=== PATIENT | male | born 1965 | race Two or more races ===

== ENCOUNTER 2017-10-07 15:01 | Inpatient (IN) | payer OTHER ==
[2017-10-07] MEDS ORDERED: NS 1,000 ML IV ONE ×2 (16:35)
[2017-10-07] MEDS ORDERED: FAMOTIDINE 20 MG/NACL 50 ML IV ONE (16:35)
[2017-10-07] MEDS ORDERED: ONDANSETRON 4 MG/2 ML VIAL IVP ONE (16:35)
[2017-10-07] MEDS ORDERED: HYDROmorphONE/DILAUDID 1 MG/ML INJ IVP ONE (16:35)
--- NOTE | 2017-10-07 16:39 | EDPHY ---
H & P Time Seen by Provider: 10/07/17 16:06 HPI/ROS: HPI Abdominal pain, vomiting and diarrhea. 52-year-old male by private vehicle with family. This patient reports that on Thursday he developed fever with abdominal pain. He describes this pain is mostly right lower and right mid abdominal pain. Described as achy and crampy. He had associated nausea and vomiting. He reports several episodes of nonbilious, nonbloody vomiting on Thursday. He has not vomited since Thursday. He reports fever which has been on off since Thursday. He reports the diarrhea started today. No bloody or melenic stool. He was seen at an urgent care yesterday for this complaint. He was discharged to the medication for nausea. Last solid food intake was yesterday. No prior abdominal surgical history. Denies ill contacts. No foreign travel. No camping. ROS: Constitutional: As above, no chills. No weakness. Eyes: No discharge. No changes in vision. ENT: No sore throat. No nasal congestion or rhinorrhea. Respiratory: No cough. No shortness of breath. Cardiac: No chest pain, no palpitations. Gastrointestinal: As above. Genitourinary: No hematuria. No dysuria or increased frequency with urination. Musculoskeletal: No back pain. No neck pain. No myalgias or arthralgias. Skin: No rashes. Neurological: No headache. No focal weakness or altered sensation. Past medical history: No significant past medical history. No prescription medications. Social history: Nonsmoker. No alcohol. Here with family. Physical Exam: General Appearance: Alert, he appears uncomfortable. This patient is responding to questions appropriately and in full sentences. This patient appears generally well-hydrated and well-nourished. Eyes: Pupils equal and round no pallor or injection. No lid edema, erythema or injection. Respiratory: There are no retractions, lungs are clear to auscultation with good air movement bilaterally. Cardiovascular: Regular rate and rhythm. No murmur. Gastrointestinal: Abdomen is mildly distended. He has tenderness on palpation vaguely in the right lower quadrant and right mid and upper abdomen. He has associated voluntary guarding on palpation, no masses, bowel sounds present. Focal tenderness at McBurney's point present. No Mireles sign. Neurological: Motor sensory function is grossly intact. Cranial nerves are normal. Gait is normal. Skin: Warm and dry, no rashes. Musculoskeletal: Neck is supple and nontender. Extremities are symmetrical. All joints range without pain or impingement. Psychiatric: No agitation. No depression. Database: EKG: Imaging: CT abdomen and pelvis with IV contrast: Significant for a dilated likely perforated 16 mm appendix with appendicolith. Lots of periappendiceal inflammatory changes with inflammation circumferentially involving the cecum and then spreading up the ascending colon. There is free air noted along the ascending colon and abscess. Results were discussed with staff radiologist Dr. Terry Mcdaniel. Procedures: Emergency department course: IV placed. He was placed on a monitor. He was started on IV normal saline with 2 L to be given over the next 1-2 hours. He was initially given 0.5 mg of IV hydromorphone, 4 mg of IV Zofran and 20 mg of IV Pepcid. He consents to CT imaging to evaluate for appendicitis versus other surgical etiology. 5:50 p.m., discussed case with on-call general surgeon Dr. Kory Dunne. We evaluated the patient's CT scans together. He accepts the patient for admission and operative management. 6:05 p.m., patient re-evaluated. Pain currently controlled. 1 g of IV Invanz ordered. Results of CT scan and diagnosis discussed with him and family. Need for operative management discussed with him and family. I explained that Dr. Kory Dunne would be admitting him in taking care of him. Their questions were answered. The patient's remaining emergency department course under my care has been uneventful. 6:30 p.m., Dr. Phu Dunne at the patient's bedside. The patient has had 1 g of IV invents. He will take this patient to the operating room now. Differential Diagnosis: The differential diagnosis on this patient includes but is not limited to appendicitis, colitis, food borne illness, gastroenteritis, cholecystitis. This represents a partial list of diagnoses considered. These considerations are based on history, physical exam, past history, reassessment and diagnostic testing. Smoking Status: Never smoked Constitutional: Initial Vital Signs Temperature (C) 39.2 C H 10/07/17 15:03 Heart Rate 107 H 10/07/17 15:03 Respiratory Rate 18 10/07/17 15:03 Blood Pressure 121/66 H 10/07/17 15:03 O2 Sat (%) 97 10/07/17 15:03 O2 Delivery Mode Room Air Allergies/Adverse Reactions: No Known Allergies Allergy (Unverified 10/07/17 15:06) Home Medications: Medication Instructions Recorded Ondansetron Odt [Zofran Odt 4 mg 4 mg PO Q8 PRN 10/07/17 (*)] Ranitidine HCl [Zantac] 150 mg PO BID 10/07/17 Medical Decision Making - Data Points Laboratory Results: Laboratory Results 10/07/17 15:52 10/07/17 15:52 Medications Given: Calcium Carbonate (Tums) 500 - 1,000 mg PO Q4 PRN PRN Reason: ACID REFLUX Stop: 04/07/18 00:01 Last Admin: 10/09/17 13:23 Dose: 1,000 mg Enoxaparin Sodium (Lovenox) 40 mg SC DAILY [facility] Stop: 04/06/18 08:59 Last Admin: 10/10/17 08:20 Dose: 40 mg Ertapenem (Invanz) 1 gm IVP DAILY [facility] PRN Reason: Protocol Stop: 11/07/17 08:59 Last Admin: 10/10/17 08:16 Dose: 1 gm Ibuprofen (Motrin) 600 mg PO Q8HRS [facility] Stop: 04/05/18 21:59 Last Admin: 10/10/17 05:27 Dose: 600 mg Metoclopramide HCl (Reglan Injection) 10 mg IVP Q4HRS PRN PRN Reason: Nausea/Vomiting, Can't Take PO Stop: 04/05/18 20:53 Last Admin: 10/09/17 04:18 Dose: 10 mg Pantoprazole Sodium (Protonix) 40 mg IVP BID [facility] Stop: 04/07/18 08:59 Last Admin: 10/10/17 08:15 Dose: 40 mg Discontinued Medications Bupivacaine HCl (Sensorcaine 0.25% Sdv) Confirm Administered Dose 30 ml .ROUTE .STK-MED ONE Stop: 10/07/17 19:03 Last Admin: 10/07/17 20:00 Dose: 30 ml Ertapenem (Invanz) 1 gm IVP EDNOW ONE PRN Reason: Protocol Stop: 10/07/17 17:59 Last Admin: 10/07/17 18:48 Dose: 1 gm Hydromorphone HCl (Dilaudid) 0.5 mg IVP EDNOW ONE Stop: 10/07/17 16:36 Last Admin: 10/07/17 16:56 Dose: 0.5 mg Sodium Chloride (Ns) 1,000 mls @ 0 mls/hr IV EDNOW ONE; Wide Open PRN Reason: Protocol Stop: 10/07/17 16:36 Last Admin: 10/07/17 16:56 Dose: 1,000 mls Sodium Chloride (Ns) 1,000 mls @ 0 mls/hr IV EDNOW ONE; Wide Open PRN Reason: Protocol Stop: 10/07/17 16:36 Last Admin: 10/07/17 17:13 Dose: 1,000 mls Famotidine/Sodium Chloride (Pepcid 20 Mg (Premix)) 50 mls @ 200 mls/hr IV EDNOW ONE Stop: 10/07/17 16:49 Last Admin: 10/07/17 16:57 Dose: 50 mls Lactated Ringer's (Lr) 1,000 mls @ 0 mls/hr IV ONCE ONE PRN Reason: KVO Stop: 10/07/17 19:09 Last Admin: 10/07/17 19:29 Dose: 1,000 mls Potassium Chloride/Dextrose/Sod Cl (D5w 1/2 Ns W/ 20 Kcl/L) 1,000 mls @ 100 mls /hr IV CONT [facility] Stop: 04/05/18 20:59 Last Admin: 10/10/17 07:51 Dose: 1,000 mls Ondansetron HCl (Zofran) 4 mg IVP EDNOW ONE Stop: 10/07/17 16:36 Last Admin: 10/07/17 16:56 Dose: 4 mg Departure - Departure Disposition: [facility] Inpatient Acute Clinical Impression: Abdominal pain, Vomiting, Diarrhea, Acute appendicitis with rupture
[2017-10-07 16:48] LABS: ALANINE AMINOTRANSFERASE 41 IU/L (21-72); ALBUMIN 3.7 g/dL (3.5-5.0); ALKALINE PHOSPHATASE 79 IU/L (38-126); ANION GAP 15 mEq/L (8-16); ASPARTATE AMINOTRANSFERASE 28 IU/L (17-59); BILIRUBIN,TOTAL 2.4 mg/dL (0.1-1.4); BILIRUBIN-CONJUGATED 0.7 mg/dL (0.0-0.5); BILIRUBIN-UNCONJUGATED 1.7 mg/dL (0.0-1.1); CALCIUM 8.5 mg/dL (8.5-10.4); CARBON DIOXIDE 26 mEq/l (22-31); CHLORIDE 91 mEq/L (97-110); GLOMERULAR FILTRATION RATE > 60; GLUCOSE 158 mg/dL (70-100); POTASSIUM 3.4 mEq/L (3.5-5.2); SODIUM 132 mEq/L (134-144); TOTAL PROTEIN 6.7 g/dL (6.3-8.2)
[2017-10-07 16:51] LABS: ADD MORPH? NO; ATYPICAL LYMPHOCYTE FLAG 0 (0-99); FRAGMENT RBC FLAG 0 (0-99); HEMATOCRIT 41.7 % (40.0-51.0); HEMOGLOBIN 14.3 g/dL (13.7-17.5); LIPEMIA HEMOLYSIS FLAG 90 (0-99); MEAN CELL HEMOGLOBIN CONCENTR. 34.3 g/dL (32.4-36.7); MEAN CELL VOLUME 90.5 fL (81.5-99.8); MEAN PLATELET VOLUME 9.8 fL (8.7-11.7); PLATELET CLUMPS FLAG 10 (0-99); PLATELET COUNT 259 10^3/uL (150-400); RED BLOOD CELL COUNT 4.61 10^6/uL (4.40-6.38); RED CELL DISTRIBUTION WIDTH 12.4 % (11.5-15.2)
[2017-10-07 16:52] LABS: LEFT SHIFT FLG 300 (0-99)
[2017-10-07 16:53] LABS: ADD DIFF? YES; ADD SCAN? NO
[2017-10-07] MEDS ORDERED: IOPAMIDOL (ISOVUE-300) 100 ML BTL ONE (17:07)
[2017-10-07 17:21] LABS: PLATELET ESTIMATE ADEQUATE (ADEQ)
[2017-10-07] MEDS ORDERED: ERTAPENEM 1 GM VIAL IVP ONE (17:58)
[2017-10-07] MEDS ORDERED: BUPIVACAINE 0.25% 30 ML SDV ONE (19:02)
[2017-10-07] MEDS ORDERED: LR 1,000 ML IV ONE (19:08)
--- NOTE | 2017-10-07 19:13 | PDCONSULT ---
Population Health Manager Note: 52 y/o male with 5 day history of fever, abd pain came to the ED this evening. Dr. Bonilla requested surgical consultation after a CT showed a ruptured appendix. PMH: no meds NKDA no prior surgery no chronic medical problems SH: from [facility], here with his son and a friend FH: [place] ROS: + fever/chills/abd pain no prior colonoscopy PE: T39.2 P 100 BP 128/78 thin male in NAD mild scleral icterus CVS: RRR w/ II/ KINA, tachy Abd: +BS, tender RLQ + RUQ with guarding/left side of abd soft, bowel sounds diminished CT: perforated appendicits with free air/cecal inflammation bili: 2.4 wbc 9.2 w/ left shift Imp: perforated appendicitis/jose r-cecal abscess mild Gilbert's Rec: to OR for appendectomy/drainage abscess Informed consent was obtained. Anh Dunne MD, FACS
[2017-10-07] MEDS ORDERED: PROPOFOL 200 MG/20 ML VIAL ONE (19:32)
[2017-10-07] MEDS ORDERED: ROCURONIUM 50 MG/5 ML VIAL ONE (19:34)
[2017-10-07] MEDS ORDERED: ONDANSETRON 4 MG/2 ML VIAL ONE (19:34)
[2017-10-07] MEDS ORDERED: fentaNYL 250 MCG/5 ML INJ ONE (19:34)
[2017-10-07] MEDS ORDERED: DEXAMETHASONE 4 MG/ML VIAL ONE (19:34)
[2017-10-07] MEDS ORDERED: VASOPRESSIN 20 UNIT/ML VIAL ONE (19:47)
[2017-10-07] MEDS ORDERED: ALBUTEROL 3 ML DEYVIAL IH PRN (20:02)
[2017-10-07] MEDS ORDERED: ONDANSETRON 4 MG/2 ML VIAL IVP PRN ×2 (20:02→20:54)
[2017-10-07] MEDS ORDERED: OXYCODONE/APAP 5/325 TAB PO PRN (20:02)
[2017-10-07] MEDS ORDERED: HYDROmorphONE/DILAUDID 1 MG/ML INJ IVP PRN (20:02)
[2017-10-07] MEDS ORDERED: fentaNYL 100 MCG/2 ML INJ IVP PRN (20:02)
[2017-10-07] MEDS ORDERED: NALOXONE HCL 0.4 MG/ML INJ IVP PRN ×2 (20:02)
--- NOTE | 2017-10-07 20:04 | PDANEPAE ---
ANE History of Present Illness Open Appy ANE Past Medical History - Cardiovascular History Hx Hypertension: No Hx Arrhythmias: No Hx Chest Pain: No - Pulmonary History Hx COPD: No Hx Asthma/Reactive Airway Disease: No Hx Oxygen in Use at Home: No Hx Sleep Apnea: No - Endocrine History Hx Diabetes: No ANE Review of Systems Review of Systems: - Exercise capacity METS (RN): 4 METS ANE Patient History - Allergies Allergies/Adverse Reactions: No Known Allergies Allergy (Unverified 10/07/17 15:06) - Home Medications Home Medications: Ondansetron Odt [Zofran Odt 4 mg (*)] 4 mg PO Q8 PRN 10/07/17 [Last Taken 2 Days Ago ~10/05/17] Ranitidine HCl [Zantac] 150 mg PO BID 10/07/17 [Last Taken 10/07/17 09:00] - NPO status NPO Since - Liquids (Date): 10/07/17 NPO Since - Liquids (Time): 11:00 NPO Since - Solids (Date): 10/07/17 NPO Since - Solids (Time): 11:00 - Smoking Hx Smoking Status: Never smoked ANE Labs/Vital Signs - Labs Result Diagrams: 10/07/17 15:52 10/07/17 15:52 - Vital Signs Blood Pressure: 117/74 Heart Rate: 101 Respiratory Rate: 24 O2 Sat (%): 91 Height: 165.1 cm Weight: 59.874 kg ANE Physical Exam - Airway Neck exam: FROM Mallampati Score: Class 2 Mouth exam: normal dental/mouth exam - Pulmonary Pulmonary: clear to auscultation - Cardiovascular Cardiovascular: regular rate and rhythym - ASA Status ASA Status: I, E ANE Anesthesia Plan Anesthesia Plan: general endotracheal anesthesia
[2017-10-07] MEDS ORDERED: SUGAMMADEX SODIUM 200 MG/2 ML VIAL IVP ONE (20:38)
[2017-10-07] MEDS ORDERED: HYDROmorphone HCL/NS/PF 0.4 MG/2 ML SYR IVP PRN (20:54)
[2017-10-07] MEDS ORDERED: METOCLOPRAMIDE 10 MG/2 ML VIAL IVP PRN (20:54)
--- NOTE | 2017-10-07 20:55 | POSTANESTH ---
Post Anesthetic Evaluation Cardiovascular Status: Normal, Stable Respiratory Status: Normal, Stable Level of Consciousness/Mental Status: Moderately Sleepy Pain Control: Adequate, Prn Tx Ordered Nausea/Vomiting Control: Adequate, Prn Tx Ordered Complications Possibly Related to Anesthesia: None Noted
--- NOTE | 2017-10-07 20:59 | POSTOPPROG ---
Post Op Note Date of Operation: 10/07/17 Surgeon: Kory Dunne (, FACS) Anesthesiologist: Jeffrey Ames DO Anesthesia: GET(General Endotracheal) Pre-op Diagnosis: appendicitis, perforated with abscess Post-op Diagnosis: same Procedure: appendectomy with drainage abscess Inf/Abcess present in the surg proc area at time of surgery?: Yes Depth: Organ Space Drains: Jw Smith
[2017-10-07] MEDS: IBUPROFEN 600 MG TAB PO SCH (21:49)
[2017-10-07] MEDS: D5W 1/2 NS W/ 20 KCl/L 1,000 ML IV SCH (21:49)
--- NOTE | 2017-10-08 04:29 | GOP ---
[f rep st] OPERATIVE REPORT DATE OF OPERATION: 10/07/2017 SURGEON: Kory Dunne MD, FACS ANESTHESIA: General endotracheal. ANESTHESIOLOGIST: Jeffrey Ames DO. PREOPERATIVE DIAGNOSIS: Perforated appendicitis with periappendiceal abscess. POSTOPERATIVE DIAGNOSIS: Perforated appendicitis with periappendiceal abscess. PROCEDURE PERFORMED: Appendectomy and drainage of periappendiceal abscess. FINDINGS: Gangrenous appendicitis with multiple sites of perforation, periappendiceal abscess. ESTIMATED BLOOD LOSS: 25 mL. DESCRIPTION OF PROCEDURE: After informed consent was obtained, the patient was brought to the operating room and placed under general anesthesia. The abdomen was prepped and draped in usual fashion. Before proceeding, a time-out and identification of the patient was performed. 0.25% Marcaine was used to establish a regional field block. A right lower quadrant incision was made somewhat higher than McBurney's point based on the location of the appendix and the abscess which was between the ascending colon and anterior abdominal wall. Incision was carried through into the abdominal cavity, immediately encountering foul-smelling pericecal fluid. As the cecum was mobilized with the terminal ilium, the appendix was identified and was noted to be gangrenous with multiple sites of perforation. There were no fecaliths within the operative field. The omentum was from the ascending colon, where the abscess had insinuated itself between these structures. There was no compromise of the bowel wall. Cultures were submitted for aerobes and anaerobes. The mesoappendix was clamped, divided, and ligated with 2-0 Vicryl ligatures. The appendix was near the cecum and the appendiceal orifice was oversewn in 2 layers of 3-0 Vicryl suture. The paracolic gutter, pericecal region, and pelvis were irrigated with normal saline until the effluent was clear. Two 10 mm Osman-Bell drains were brought through separate stab wounds below the incision. One was placed in the right paracolic gutter, the other in the dependent portion of the pelvis. The operative field appeared hemostatic. The peritoneum was closed with continuous running 2-0 Vicryl suture. The wound was again irrigated. The fascia was closed with 0 PDS suture, and a Jw drain brought out through the lateral aspect of the wound and secured to the skin with 2-0 nylon suture. Skin was closed loosely with jamee. Drains were secured with 2-0 nylon suture. Sterile dressings were placed. The patient was then returned extubated to the recovery room in satisfactory condition. Needle, sponge, and instrument count were correct. COMPLICATIONS: None. /[id number]/MODL MTDD
[2017-10-08 05:46] LABS: ADD MORPH? NO; ADD SCAN? YES; ATYPICAL LYMPHOCYTE FLAG 0 (0-99); FRAGMENT RBC FLAG 0 (0-99); HEMATOCRIT 35.6 % (40.0-51.0); HEMOGLOBIN 11.9 g/dL (13.7-17.5); LIPEMIA HEMOLYSIS FLAG 80 (0-99); MEAN CELL HEMOGLOBIN 30.6 pg (27.9-34.1); MEAN CELL HEMOGLOBIN CONCENTR. 33.4 g/dL (32.4-36.7); MEAN CELL VOLUME 91.5 fL (81.5-99.8); MEAN PLATELET VOLUME 9.6 fL (8.7-11.7); PLATELET CLUMPS FLAG 10 (0-99); PLATELET COUNT 211 10^3/uL (150-400); RED BLOOD CELL COUNT 3.89 10^6/uL (4.40-6.38); RED CELL DISTRIBUTION WIDTH 12.9 % (11.5-15.2)
[2017-10-08] MEDS: IBUPROFEN 600 MG TAB PO SCH ×3 (05:47→20:54)
[2017-10-08 05:51] LABS: LEFT SHIFT FLG 300 (0-99)
[2017-10-08 06:04] LABS: ALANINE AMINOTRANSFERASE 44 IU/L (21-72); ALBUMIN 2.6 g/dL (3.5-5.0); ALKALINE PHOSPHATASE 61 IU/L (38-126); ANION GAP 12 mEq/L (8-16); ASPARTATE AMINOTRANSFERASE 31 IU/L (17-59); BILIRUBIN,TOTAL 1.3 mg/dL (0.1-1.4); CALCIUM 7.6 mg/dL (8.5-10.4); CARBON DIOXIDE 26 mEq/l (22-31); CHLORIDE 100 mEq/L (97-110); CREATININE 0.9 mg/dL (0.7-1.3); GLOMERULAR FILTRATION RATE > 60; GLUCOSE 167 mg/dL (70-100); POTASSIUM 4.2 mEq/L (3.5-5.2); SODIUM 138 mEq/L (134-144); TOTAL PROTEIN 4.8 g/dL (6.3-8.2)
[2017-10-08 06:14] LABS: COLOR YELLOW; LEUKOCYTE ESTERASE,URINE NEGATIVE (NEGATIVE); NITRITE,URINE NEGATIVE (NEGATIVE)
[2017-10-08 06:24] LABS: ADD DIFF? YES; SCAN POSITIVE
[2017-10-08 06:33] LABS: PLATELET ESTIMATE ADEQUATE (ADEQ); TOXIC GRANULATION PRESENT; TOXIC VACUOLIZATION PRESENT
--- NOTE | 2017-10-08 06:35 | SOAPPROG ---
SOAP Progress Note Assessment/Plan: Assessment: Plan: Subjective: feeling better Objective: Vital Signs Temp Pulse Resp BP Pulse Ox 36.4 C 65 16 98/71 L 96 10/08/17 04:00 10/08/17 04:00 10/08/17 04:00 10/08/17 04:00 10/08/17 04:00 Laboratory Results 10/08/17 04:44 10/08/17 04:44 10/07/17 10/08/17 10/09/17 05:59 05:59 05:59 Intake Total 3000 Output Total 1295 Balance 1705 - Pending Discharge Pending Discharge Within 24 Hours: No Pending Discharge Within 48 Hours: No Physical Exam - Physical Exam General Appearance: no apparent distress Respiratory: lungs clear, decreased breath sounds Cardiac/Chest: regular rate, rhythm Abdomen: non-tender, soft Male Genitalia: deferred Rectal: deferred Skin: normal color Neuro/Psych: alert ICD10 Worksheet Patient Problems: Problems Problem Status Onset Abdominal pain Acute Acute appendicitis Acute Diarrhea Acute Vomiting Acute
[2017-10-08] MEDS: D5W 1/2 NS W/ 20 KCl/L 1,000 ML IV SCH (07:24)
[2017-10-08] MEDS: ENOXAPARIN 40 MG/0.4 ML SYR SC SCH (08:24)
[2017-10-08] MEDS: ERTAPENEM 1 GM VIAL IVP SCH (08:24)
--- NOTE | 2017-10-08 10:43 | ASMTCMCOM ---
CM Note CM Note Notes: Spoke w/RN, anticipate pt will dc home w/support of when medically stable. CM available for any changes. Date Signed: 10/08/2017 10:42 AM Electronically Signed By:Rere Pena RN
[2017-10-09] MEDS: CALCIUM CARBONATE 500 MG CHEWABLE TAB PO PRN ×4 (00:07→13:23)
[2017-10-09] MEDS: IBUPROFEN 600 MG TAB PO SCH ×3 (05:05→21:17)
[2017-10-09] MEDS: ENOXAPARIN 40 MG/0.4 ML SYR SC SCH (08:49)
[2017-10-09] MEDS: ERTAPENEM 1 GM VIAL IVP SCH (08:55)
[2017-10-09] MEDS ORDERED: ONDANSETRON DISINTEGRATING 4 MG TAB PO PRN (09:01)
[2017-10-09] MEDS: PANTOPRAZOLE SODIUM 40 MG VIAL IVP SCH ×2 (09:40→21:18)
--- NOTE | 2017-10-09 09:41 | SOAPPROG ---
SOAP Progress Note Assessment/Plan: Assessment: s/p appendectomy + drainage abscess Plan: continue Ertapenam IV fluids 10/09/17 09:36 Subjective: emesis last night/diarrhea this morning Objective: Vital Signs Temp Pulse Resp BP Pulse Ox 36.9 C 83 18 134/92 H 93 10/09/17 08:00 10/09/17 08:00 10/09/17 08:00 10/09/17 08:00 10/09/17 08:00 Microbiology 10/07/17 20:11 Gram Stain - Final Appendix - Eswab Laboratory Results 10/08/17 04:44 10/08/17 04:44 10/08/17 10/09/17 10/10/17 05:59 05:59 05:59 Intake Total 3000 2076 Output Total 1295 190 Balance 1705 1886 - Pending Discharge Pending Discharge Within 24 Hours: No Pending Discharge Within 48 Hours: No ICD10 Worksheet Patient Problems: Problems Problem Status Onset Abdominal pain Acute Acute appendicitis Acute Diarrhea Acute Vomiting Acute
[2017-10-09] MEDS: D5W 1/2 NS W/ 20 KCl/L 1,000 ML IV SCH ×2 (10:32→21:27)
[2017-10-10] MEDS: IBUPROFEN 600 MG TAB PO SCH ×3 (05:27→21:21)
[2017-10-10] MEDS: D5W 1/2 NS W/ 20 KCl/L 1,000 ML IV SCH (07:51)
[2017-10-10] MEDS: PANTOPRAZOLE SODIUM 40 MG VIAL IVP SCH ×2 (08:15→21:21)
[2017-10-10] MEDS: ERTAPENEM 1 GM VIAL IVP SCH (08:16)
[2017-10-10] MEDS: ENOXAPARIN 40 MG/0.4 ML SYR SC SCH (08:20)
--- NOTE | 2017-10-10 08:52 | SOAPPROG ---
SOAP Progress Note Assessment/Plan: Assessment: s/p appendectomy + drainage abscess resolving ileus Plan: continue Ertapenam DC IV fluids 10/09/17 09:36 10/10/17 08:51 Subjective: feeling better/no further emesis Objective: Vital Signs Temp Pulse Resp BP Pulse Ox 36.6 C 64 18 121/82 H 95 10/10/17 07:09 10/10/17 07:09 10/10/17 07:09 10/10/17 07:09 10/10/17 07:09 Microbiology 10/07/17 20:11 Gram Stain - Final Appendix - Eswab Laboratory Results 10/08/17 04:44 10/08/17 04:44 10/09/17 10/10/17 10/11/17 05:59 05:59 05:59 Intake Total 2076 1753 Output Total 190 100 Balance 1886 1653 - Pending Discharge Pending Discharge Within 24 Hours: No Pending Discharge Within 48 Hours: No Physical Exam - Physical Exam General Appearance: no apparent distress Abdomen: normal bowel sounds, soft, other (dressing changed/JPs clearing) Extremities: other (Right AC IV/in place since ED ) ICD10 Worksheet Patient Problems: Problems Problem Status Onset Abdominal pain Acute Acute appendicitis Acute Diarrhea Acute Vomiting Acute
[2017-10-11] MEDS: IBUPROFEN 600 MG TAB PO SCH ×3 (05:32→21:08)
--- NOTE | 2017-10-11 07:49 | SOAPPROG ---
SOAP Progress Note Assessment/Plan: Assessment: s/p appendectomy + drainage abscess resolving ileus Plan: continue Ertapenam until drains out/then switch to Augmentin DC IV fluids 10/09/17 09:36 10/10/17 08:51 10/11/17 07:48 Subjective: resting comfortably/tolerated diet Objective: Vital Signs Temp Pulse Resp BP Pulse Ox 36.6 C 70 16 102/70 96 10/11/17 07:27 10/11/17 07:27 10/11/17 07:27 10/11/17 07:27 10/11/17 07:27 Microbiology 10/07/17 20:11 Gram Stain - Final Appendix - Eswab Laboratory Results 10/08/17 04:44 10/08/17 04:44 10/10/17 10/11/17 10/12/17 05:59 05:59 05:59 Intake Total 1753 Output Total 100 72 Balance 1653 -72 cultures e.coli/watters-sensitive with BECKY <.25 for Ertapenam - Pending Discharge Pending Discharge Within 24 Hours: No Pending Discharge Within 48 Hours: Yes Pending Discharge Date: 10/13/17 Pending Discharge Time: 11:00 Physical Exam - Physical Exam General Appearance: alert, no apparent distress Abdomen: soft, distended, other (dressings dry/drains clearing) ICD10 Worksheet Patient Problems: Problems Problem Status Onset Abdominal pain Acute Acute appendicitis with rupture Acute Diarrhea Acute Vomiting Acute
[2017-10-11] MEDS: PANTOPRAZOLE SODIUM 40 MG VIAL IVP SCH ×2 (08:22→21:10)
[2017-10-11] MEDS: ENOXAPARIN 40 MG/0.4 ML SYR SC SCH (08:22)
[2017-10-11] MEDS: ERTAPENEM 1 GM VIAL IVP SCH (08:22)
--- NOTE | 2017-10-11 12:40 | ASMTCMCOM ---
CM Note CM Note Notes: Per surgery note, patient will continue to receive Ertapenem until drains removed, then switch to Augmentin. He is feeling well. Discharge plan continues to be home. CM available if needs change. Date Signed: 10/11/2017 12:40 PM Electronically Signed By:Zee Morrow RN
[2017-10-12] MEDS: IBUPROFEN 600 MG TAB PO SCH ×3 (05:55→21:36)
--- NOTE | 2017-10-12 06:06 | SOAPPROG ---
SOAP Progress Note Assessment/Plan: Assessment: s/p appendectomy + drainage abscess resolving ileus Plan: continue Ertapenam transition to oral antibiotics tomorrow 10/09/17 09:36 10/10/17 08:51 10/11/17 07:48 10/12/17 06:05 Objective: Vital Signs Temp Pulse Resp BP Pulse Ox 36.7 C 54 L 16 115/78 95 10/11/17 23:51 10/11/17 23:51 10/11/17 23:51 10/11/17 23:51 10/11/17 23:51 Laboratory Results 10/08/17 04:44 10/08/17 04:44 10/11/17 10/12/17 10/13/17 05:59 05:59 05:59 Output Total 72 Balance -72 - Pending Discharge Pending Discharge Within 24 Hours: Yes Pending Discharge Date: 10/13/17 Pending Discharge Time: 11:00 Physical Exam - Physical Exam General Appearance: no apparent distress Respiratory: lungs clear Cardiac/Chest: regular rate, rhythm Abdomen: normal bowel sounds, non-tender, soft, distended, other (eunice/HEATHER drains out) Neuro/Psych: normal mood/affect, oriented x 3 ICD10 Worksheet Patient Problems: Problems Problem Status Onset Abdominal pain Acute Acute appendicitis with rupture Acute Diarrhea Acute Vomiting Acute
[2017-10-12] MEDS: ERTAPENEM 1 GM VIAL IVP SCH (09:29)
[2017-10-12] MEDS: PANTOPRAZOLE SODIUM 40 MG VIAL IVP SCH (09:29)
[2017-10-12] MEDS: ENOXAPARIN 40 MG/0.4 ML SYR SC SCH (09:29)
[2017-10-12] MEDS: PANTOPRAZOLE SODIUM 40 MG TAB PO SCH (21:37)
[2017-10-13] MEDS: IBUPROFEN 600 MG TAB PO SCH (05:51)
--- NOTE | 2017-10-13 06:46 | PDDCSUM ---
Discharge Summary Discharge Summary: #[id number] Ninfa Dunne MD, FACS
[2017-10-13] MEDS: ERTAPENEM 1 GM VIAL IVP SCH (08:11)
[2017-10-13] MEDS: PANTOPRAZOLE SODIUM 40 MG TAB PO SCH (08:11)
[2017-10-13] MEDS: ENOXAPARIN 40 MG/0.4 ML SYR SC SCH (08:12)
[2017-10-13 11:35] VITALS: BP 108/75; PULSE 58; RESP 16; TEMP 97.7; O2SAT 96
--- NOTE | 2017-10-13 12:18 | ASDISCHSUM ---
Discharge Information Plan Status:Home with No Needs Medically Cleared to Leave:10/12/2017 Discharge Date:10/13/2017 11:01 AM CM D/C Disposition: ADT D/C Disposition:Home, Routine, Self-Care Projected Discharge Date:10/13/2017 12:00 AM Transportation at D/C: Discharge Delay Reason: Follow-Up Date:10/13/2017 12:00 AM Discharge Slot: Final Diagnosis: Placement Information Patient Contact Information Contact Name:EMANUEL Relationship:Jimi Address: Work Phone: City: [facility] Phone: State/Zip Code: Email: Financial Information Financial Class:HMO and PPO Plans Primary Plan Desc:SUSAN IRVIN PPO Primary Plan Number:[id number] Secondary Plan Desc: Secondary Plan Number: Assessment Information [facility] CM Progress Note CM Note CM Note Notes: Spoke w/RN, anticipate pt will dc home w/support of when medically stable. CM available for any changes. Date Signed: 10/08/2017 10:42 AM Electronically Signed By:Rere Pena RN [facility] CM Progress Note CM Note CM Note Notes: Per surgery note, patient will continue to receive Ertapenem until drains removed, then switch to Augmentin. He is feeling well. Discharge plan continues to be home. CM available if needs change. Date Signed: 10/11/2017 12:40 PM Electronically Signed By:Zee Morrow RN Intervention Information
--- NOTE | 2017-10-13 13:12 | GDS ---
[f rep st] DISCHARGE SUMMARY DISCHARGE DIAGNOSES: 1. Perforated appendicitis with periappendiceal abscess. 2. History of peptic ulcer disease and gastroesophageal reflux disease. PROCEDURE PERFORMED: 10/07/2017, appendectomy with drainage of periappendiceal abscess. HOSPITAL COURSE: For details of admission History and Physical, please see dictated summary. Briefl y, the patient is a 52-year-old male, who presented with a 5- to 6-day history of abdominal pain, fev er, and came to the emergency room for evaluation. A CT scan was performed, which showed a perforate d appendicitis with periappendiceal abscess and air and fluid tracking up towards the liver. The pat ient underwent open appendectomy with drainage. He received ertapenem 1 g IV piggyback preoperativel y. This was continued q.24 hours postoperatively. Cultures grew out mixed intestinal richard. Two pr ominent E coli colonies were recovered. Both were pansensitive with MICs less than 0.254 ertapenem. His white blood cell count returned to normal. His fever subsided within the first 36 hours, and hi s incision was healing well, without sign of infection. Drains were removed after they cleared on e day prior to discharge, and he received his last dose of ertapenem on the day of discharge. Will b e continued to complete a 10-day course with oral Augmentin 875 mg p.o. b.i.d. The patient was tolerating regular diet and was ambulatory. He will call my office for an appointmen t for staple removal in the upcoming week. I advised him not to return to work for an additional wee k. CONDITION AT TIME OF DISCHARGE: Improved. DISCHARGE MEDICATIONS: Augmentin 875 mg p.o. b.i.d., ibuprofen 600 mg p.o. q.8 hours p.r.n. yousif velasquez ntoprazole 40 mg p.o. b.i.d. /[id number]/MODL
[2017-10-13] MEDS ORDERED: AMOXICILLIN/CLAVULANATE POT 875/125 MG TAB PO SCH (21:00)
--- NOTE | 2017-10-16 18:00 | PQFORM ---
PHYSICIAN QUERY FORM Needs Your Response This query form is being sent to you to assure this patient record is coded properly. Please respond to the question below: TALENT PROGRAM MANAGER QUESTION: Dr. Dunne, The diagnosis of postop ileus is documented in the progress notes dated and 10/09/17. Would this be appropriate as an additional diagnosis on the discharge summary? Yes___x No Other Clinically Undetermined Many thanks, JANICE Grady [facility]/Coding Department w: [phone] INSTRUCTIONS FOR RESPONSE: Answer question by clicking on the "Edit Document" button. Move cursor to area below the stars. When complete, hit "Save." Click on the "Sign" button, then click "Sign" again. Type in your PIN and hit "Enter." MTDD
== END 2017-10-13 11:01 | disposition home or self-care (01) | DRG 339 ==
LOC: F3E 21:35
PROVIDERS: ADMIT Surgery; ATTEND Surgery
PROC: 0DTJ0ZZ Resection of Appendix, Open Approach (ICD-10-PCS; principal; 2017-10-07 19:30)
PROC: 0W9G0ZZ Drainage of Peritoneal Cavity, Open Approach (ICD-10-PCS; principal; 2017-10-07 19:30)
DX: K35.3 Acute appendicitis with localized peritonitis (principal); B96.20 Unspecified Escherichia coli [E. coli] as the cause of diseases classified elsewhere; K91.89 Other postprocedural complications and disorders of digestive system; K56.7 Ileus, unspecified; K21.9 Gastro-esophageal reflux disease without esophagitis
CPT/HCPCS: 96365; J1100; J1170; J1335; J1650; J2405; J2704; J2765; J3010; Q9967